=== PATIENT | female | born 1985 | race Caucasian/White ===

== ENCOUNTER 2022-12-17 14:26 | Emergency (ER) | payer OTHER ==
[~2022-12-17] VITALS: Ht 172.7 cm; Wt 66.2 kg
[2022-12-17 16:01] LABS: BASOPHILS 0.3 % (0-2); EOSINOPHILS 3.3 % (0-6); HEMATOCRIT 36.4 % (35.0-50.0); HEMOGLOBIN 12.2 g/dL (12.0-18.0); LYMPHOCYTES 22.5 % (24-44); MCH 30.8 (27-36); MCHC 33.5 g/dl (30-36); MCV 91.8 fl (81-99); MONOCYTES 5.6 % (0-12); NEUTROPHILS 68.3 % (39-80); PLATELET COUNT 283 K/uL (140-440); RBC 3.97 M/ul (4.3-5.7); RDW 14.9 (10.5-15.0)
[2022-12-17 16:29] LABS: ALBUMIN 3.8 g/dL (3.4-5.0); ALBUMIN/GLOBULIN RATIO 1.19 (1.1-2.4); ANION GAP 12.8 (7-21); BILIRUBIN, TOTAL 0.3 ng/dL (0.2-1.0); BUN/CREATININE RATIO 17.8 (6.0-28.6); CREATININE, SERUM 0.73 mg/dL (0.55-1.02); POTASSIUM 3.8 mmol/L (3.5-5.1); TSH, 3RD GENERATION 1.457 uIU/mL (0.358-3.740)
[2022-12-17 17:05] LABS: ERYTHROCYTE SEDIMENTATION RATE 9
[2022-12-17] MEDS ORDERED: TRAMADOL HCL50 MG PO (17:29)
[2022-12-17 17:45] VITALS: BP 132/74
== END 2022-12-17 17:45 | disposition home or self-care (01) ==
LOC: ED 14:26
PROVIDERS: Emergency Medicine
DX: M25.552 Pain in left hip (principal); M25.551 Pain in right hip; M25.512 Pain in left shoulder; M25.511 Pain in right shoulder; Z88.0 Allergy status to penicillin; Z88.6 Allergy status to analgesic agent; Z88.5 Allergy status to narcotic agent; Z88.8 Allergy status to other drugs, medicaments and biological substances; Z91.018 Allergy to other foods
CPT/HCPCS: 36415; 80053; 84443; 85025; 85651; 86140; 99283; A9270